=== PATIENT | female | born 1995 | race Caucasian/White ===

== ENCOUNTER 2017-01-04 12:51 | Emergency (ER) | payer OTHER ==
[2017-01-04 13:52] LABS: HEMOGLOBIN 11.6 gm/dl (12.3-15.3); RED BLOOD COUNT 4.88 M/UL (4.00-5.10); WHITE BLOOD COUNT 10.5 K/UL (4.5-11.0)
[2017-01-04 14:31] LABS: BUN/CREATININE RATIO 14 (0-10)
== END 2017-01-04 18:04 | disposition home or self-care (01) ==
LOC: ER1 12:51
PROVIDERS: Physician Assistant
DX: O26.891 Other specified pregnancy related conditions, first trimester (principal); R10.31 Right lower quadrant pain; R10.32 Left lower quadrant pain; Z87.891 Personal history of nicotine dependence; Z3A.01 Less than 8 weeks gestation of pregnancy
CPT/HCPCS: 36415; 76817; 80053; 81001; 84702; 84703; 85025; 99284; J7040

== ENCOUNTER 2017-02-19 12:45 | Observation (INO) | payer OTHER ==
[2017-02-19 13:12] LABS: HEMOGLOBIN 10.9 gm/dl (12.3-15.3); RED BLOOD COUNT 4.52 M/UL (4.00-5.10); WHITE BLOOD COUNT 12.6 K/UL (4.5-11.0)
[2017-02-19 13:32] LABS: BUN/CREATININE RATIO 14 (0-10)
== END 2017-02-19 20:07 | disposition home or self-care (01) ==
LOC: GENOP 12:45 → OB 12:49
PROVIDERS: Obstetrics & Gynecology; ADMIT Obstetrics & Gynecology
DX: O21.0 Mild hyperemesis gravidarum (principal); Z3A.14 14 weeks gestation of pregnancy; Z80.1 Family history of malignant neoplasm of trachea, bronchus and lung; Z83.3 Family history of diabetes mellitus; Z82.5 Family history of asthma and other chronic lower respiratory diseases; Z82.49 Family history of ischemic heart disease and other diseases of the circulatory system; Z79.899 Other long term (current) drug therapy
CPT/HCPCS: 36415; 80048; 81001; 85025; 96365; 96366; 96368; 96375; G0378; J2405; J7050; J7120

== ENCOUNTER 2017-03-21 12:32 | Emergency (ER) | payer OTHER ==
[2017-03-21 15:46] LABS: HEMOGLOBIN 10.4 gm/dl (12.3-15.3); RED BLOOD COUNT 4.35 M/UL (4.00-5.10); WHITE BLOOD COUNT 10.5 K/UL (4.5-11.0)
[2017-03-21 15:54] LABS: BUN/CREATININE RATIO 15 (0-10)
== END 2017-03-21 19:35 | disposition home or self-care (01) ==
LOC: ER1 12:32
PROVIDERS: Student in an Organized Health Care Education/Training Program
DX: O9A.212 Injury, poisoning and certain other consequences of external causes complicating pregnancy, second trimester (principal); S30.1XXA Contusion of abdominal wall, initial encounter; O20.0 Threatened abortion; Z3A.18 18 weeks gestation of pregnancy; W18.39XA Other fall on same level, initial encounter
CPT/HCPCS: 36415; 80053; 81001; 83690; 84703; 85025; 86900; 86901; 87210; 99284

== ENCOUNTER 2017-07-05 12:35 | Outpatient (CLI) | payer OTHER ==
[2017-07-05 13:55] LABS: HEMOGLOBIN 11.3 gm/dl (12.3-15.3); RED BLOOD COUNT 4.28 M/UL (4.00-5.10); WHITE BLOOD COUNT 12.2 K/UL (4.5-11.0)
[2017-07-05 14:22] LABS: BUN/CREATININE RATIO 23 (0-10)
== END 2017-07-05 14:58 | disposition other institution (70) ==
LOC: GENOP 12:35
PROVIDERS: Obstetrics & Gynecology
DX: O99.89 Other specified diseases and conditions complicating pregnancy, childbirth and the puerperium (principal); R10.9 Unspecified abdominal pain; I10 Essential (primary) hypertension; Z3A.33 33 weeks gestation of pregnancy
CPT/HCPCS: 51702; 80053; 81001; 82140; 82550; 82553; 83615; 83880; 84484; 84550; 85025; 93005; 96365; 96367; 96372; 96374; 96375; 96376; J0360; J0702; J3475

== ENCOUNTER 2021-05-14 18:20 | Emergency (ER) | payer OTHER ==
[~2021-05-14 18:20] MED LIST: AMOXICILLIN500 M1 PO; BENADRYL 25MG C25 MG PO; BENTYL 20MG TAB20 MG PO; PHENERGAN 25 MG25 M1 PO; PREDNISONE 10 M10 MG PO
[2021-05-14 20:01] LABS: BUN/CREATININE RATIO 22 (0-10)
[2021-05-14 21:46] LABS: HEMOGLOBIN 12.1 gm/dl (12.3-15.3); RED BLOOD COUNT 5.14 M/UL (4.00-5.10)
[2021-05-15] MEDS ORDERED: PHENERGAN 25 MG25 M1 PO (00:56)
[2021-05-15] MEDS ORDERED: ZOFRAN ODT 4 MG4 MG PO (00:56)
== END 2021-05-15 01:21 | disposition home or self-care (01) ==
LOC: ER1 18:20
PROVIDERS: Physician Assistant
DX: J02.9 Acute pharyngitis, unspecified (principal); R11.2 Nausea with vomiting, unspecified; E87.6 Hypokalemia; Z20.822 Contact with and (suspected) exposure to COVID-19; Z90.49 Acquired absence of other specified parts of digestive tract; Z88.0 Allergy status to penicillin; Z88.8 Allergy status to other drugs, medicaments and biological substances
CPT/HCPCS: 0240U; 80053; 81001; 83690; 84703; 85025; 87081; 87880; 96374; 96375; 99284; J1885; J2405

== ENCOUNTER 2022-04-01 09:54 | Emergency (ER) | payer OTHER ==
[~2022-04-01 09:54] MED LIST changes: +ZOFRAN ODT 4 MG4 MG PO
== END 2022-04-01 13:55 | disposition other institution (70) ==
LOC: ER1 09:54
DX: K64.5 Perianal venous thrombosis (principal); Z20.822 Contact with and (suspected) exposure to COVID-19
CPT/HCPCS: 0240U; 70450; 96374; 96375; 99285; J1170; J1885; J2765; J7030

== ENCOUNTER 2022-06-25 19:32 | Emergency (ER) | payer OTHER | END 2022-06-25 20:05 | disposition left against medical advice (07) | LOC: ER1 19:32 | DX: Z53.21 Procedure and treatment not carried out due to patient leaving prior to being seen by health care provider (principal) ==